=== PATIENT | female | born 1950 | race Caucasian/White ===

== ENCOUNTER 2016-08-21 18:14 | Emergency (ER) | payer OTHER ==
[~2016-08-21] VITALS: Ht 172.7 cm; Wt 81.5 kg
[2016-08-21 18:17] VITALS: BP 141/84; PULSE 86; RESP 22; TEMP 98.3; O2SAT 99
[2016-08-21] MEDS ORDERED: SODIUM CHLOR 0.9% 1000 ML INJ 1,000 ML IV SCH (18:51)
[2016-08-21] MEDS ORDERED: SODIUM CHLOR 0.9% 1000 ML INJ 1,000 ML IV ONE (19:00)
[2016-08-21] MEDS ORDERED: KETOROLAC TROMETHAMINE 30 MG/ML (IVP) VIAL IVP ONE (19:00)
[2016-08-21] MEDS ORDERED: SODIUM CHLORIDE 0.9% FLUSH 10 ML FLUSH IV FLUSH PRN (19:00)
[2016-08-21] MEDS ORDERED: ONDANSETRON HCL 4 MG/2 ML VIAL IVP ONE (19:00)
[2016-08-21] MEDS ORDERED: LOPERAMIDE HCL 2 MG CAP PO ONE (19:00)
[2016-08-21] MEDS ORDERED: ATOR20TA15 PO (19:02)
[2016-08-21] MEDS ORDERED: PANT40TA3 PO (19:02)
[2016-08-21] MEDS ORDERED: ALPR.5 PO (19:02)
[2016-08-21] MEDS ORDERED: ZYRT10CA PO (19:02)
[2016-08-21] MEDS ORDERED: VALA1TAB PO (19:02)
[2016-08-21] MEDS ORDERED: ZOLP10TA3 PO (19:02)
[2016-08-21] MEDS ORDERED: HYDR-3366 PO (19:02)
[2016-08-21] MEDS ORDERED: GABA400C5 PO (19:02)
[2016-08-21] MEDS ORDERED: METO25TA3 PO (19:02)
[2016-08-21] MEDS ORDERED: VORT1TAB3 PO (19:02)
[2016-08-21 19:19] LABS: AUTOMATED NEUTROPHIL # 5.7 TH/MM3 (1.8-7.7); BASOPHIL % 0.3 % (0.0-2.0); EOSINOPHIL % 0.1 % (0.0-4.0); HEMATOCRIT 37.6 % (35.0-46.0); HEMO FLAGS DIFF FINAL; LYMPH % 16.1 % (9.0-44.0); LYMPHOCYTE # 1.2 TH/MM3 (1.0-4.8); MEAN CELL VOLUME 87.8 FL (80.0-100.0); MEAN CORPUSCULAR HGB CONC 34.1 % (32.0-36.0); MONO % 6.8 % (0.0-8.0); NEUT % 76.7 % (16.0-70.0); PLATELET COUNT 253 TH/MM3 (150-450); RED BLOOD COUNT 4.28 MIL/MM3 (4.00-5.30); RED CELL DISTRIBUTION WIDTH 13.2 % (11.6-17.2); WHITE BLOOD COUNT 7.4 TH/MM3 (4.0-11.0)
[2016-08-21] MEDS ORDERED: ZOFR4TAB3 SL (19:53)
[2016-08-21] MEDS ORDERED: LOPE2TAB3 PO (19:53)
--- NOTE | 2016-08-21 19:53 | PD ---
HPI Chief Complaint: GI Complaint Time Seen by Provider: 18:42 Travel History International Travel<30 days: No Contact w/Intl Traveler<30days: No Traveled to known affect area: No History of Present Illness HPI This 66-year-old woman who presents to the emergency department complaining of nausea vomiting diarrhea starting yesterday afternoon. The patient recently went to the report of fluid off normally 2 days ago. Yesterday in the afternoon started getting nausea vomiting. She copious nausea vomiting all night and then developed copious watery diarrhea. Some chills but no definite fevers. No abdominal pain. No blood in her stool or vomit. She is a history of cholecystectomy and a . No other abdominal surgeries. No recent undercooked foods. No other sick contacts. No other complaints. History Past Medical History Narrative Medical Mitral valve prolapse and palpitations Anxiety Chronic back pain, on chronic opiates Tetanus Vaccination: > 5 Years Influenza Vaccination: Yes Social History Alcohol Use: No Tobacco Use: No Allergies-Medications (Allergen,Severity, Reaction): Coded Allergies: Adhesives (Verified Allergy, Unknown, 08/21/16) Biaxin (Verified Allergy, Unknown, 08/21/16) Cipro (Verified Allergy, Unknown, 08/21/16) Methadone (Verified Allergy, Unknown, 08/21/16) Penicillin (Verified Allergy, Unknown, 08/21/16) Ultram (Verified Allergy, Unknown, 08/21/16) Reported Meds & Prescriptions Reported Meds & Active Scripts Active Loperamide (Loperamide HCl) 2 Mg Tab 2 Mg PO DIRECTED PRN One tablet after each loose stool. Not to exceed 8 tablets per day. Zofran Odt (Ondansetron Odt) 4 Mg Tab 4 Mg SL Q8HR PRN May substitute non-ODT form. Reported Pantoprazole (Pantoprazole Sodium) 40 Mg Tab 40 Mg PO DAILY Valacyclovir (Valacyclovir HCl) 1 Gm Tab 1,000 Mg PO BID [place] (Hydrocodone-Acetaminophen) 10-325 Mg Tab 10 Tab PO Q4H PRN Xanax (Alprazolam) 0.5 Mg Tab 0.5 Mg PO Q4H PRN Zolpidem (Zolpidem Tartrate) 10 Mg Tab 10 Mg PO HS PRN Trintellix (Vortioxetine) 20 Mg Tab 20 Mg PO DAILY Gabapentin 400 Mg Cap 400 Cap PO HS Atorvastatin (Atorvastatin Calcium) 20 Mg Tab 20 Mg PO HS Zyrtec Allergy (Cetirizine HCl) 10 Mg Cap 10 Mg PO DAILY Metoprolol Tartrate 25 Mg Tab 25 Mg PO BID Review of Systems Except as stated in HPI: all other systems reviewed are Neg Physical Exam Narrative GENERAL: 66-year-old, appears uncomfortable but nontoxic. SKIN: Focused skin assessment warm/dry. Slightly decreased skin turgor. HEAD: Atraumatic. Normocephalic. EYES: Pupils equal and round. No scleral icterus. No injection or drainage. ENT: No nasal bleeding or discharge. Mucous membranes are little bit dry. NECK: Trachea midline. No JVD. CARDIOVASCULAR: Regular rate and rhythm. No murmur appreciated. RESPIRATORY: No accessory muscle use. Clear to auscultation. Breath sounds equal bilaterally. GASTROINTESTINAL: Abdomen soft, non-tender, nondistended. Hepatic and splenic margins not palpable. MUSCULOSKELETAL: No obvious deformities. No edema. NEUROLOGICAL: Awake and alert. No obvious cranial nerve deficits. Data Data Last Documented VS Vital Signs Date Time Temp Pulse Resp B/P Pulse Ox O2 Delivery O2 Flow Rate FiO2 08/21/16 18:17 98.3 86 22 141/84 99 Orders Complete Blood Count With Diff (08/21/16 18:51) Comprehensive Metabolic Panel (08/21/16 18:51) Lipase (08/21/16 18:51) Iv Access Insert/Monitor (08/21/16 18:51) Ondansetron Inj (Zofran Inj) (08/21/16 19:00) Sodium Chlor 0.9% 1000 Ml Inj (Ns 1000 M (08/21/16 18:51) Sodium Chloride 0.9% Flush (Ns Flush) (08/21/16 19:00) Ketorolac Inj (Toradol Inj) (08/21/16 19:00) Sodium Chlor 0.9% 1000 Ml Inj (Ns 1000 M (08/21/16 19:00) Loperamide (Imodium) (08/21/16 19:00) Labs Laboratory Tests Test 08/21/16 08/21/16 18:30 18:32 Sodium Level 140 MEQ/L Potassium Level 3.4 MEQ/L Chloride Level 104 MEQ/L Carbon Dioxide Level 24.9 MEQ/L Anion Gap 11 MEQ/L Blood Urea Nitrogen 8 MG/DL Creatinine 0.66 MG/DL Estimat Glomerular Filtration 90 ML/MIN Rate Random Glucose 118 MG/DL Calcium Level 9.2 MG/DL Total Bilirubin 0.8 MG/DL Aspartate Amino Transf 17 U/L (AST/SGOT) Alanine Aminotransferase 20 U/L (ALT/SGPT) Alkaline Phosphatase 69 U/L Total Protein 8.0 GM/DL Albumin 4.2 GM/DL Lipase 78 U/L White Blood Count 7.4 TH/MM3 Red Blood Count 4.28 MIL/MM3 Hemoglobin 12.8 GM/DL Hematocrit 37.6 % Mean Corpuscular Volume 87.8 FL Mean Corpuscular Hemoglobin 30.0 PG Mean Corpuscular Hemoglobin 34.1 % Concent Red Cell Distribution Width 13.2 % Platelet Count 253 TH/MM3 Mean Platelet Volume 8.3 FL Neutrophils (%) (Auto) 76.7 % Lymphocytes (%) (Auto) 16.1 % Monocytes (%) (Auto) 6.8 % Eosinophils (%) (Auto) 0.1 % Basophils (%) (Auto) 0.3 % Neutrophils # (Auto) 5.7 TH/MM3 Lymphocytes # (Auto) 1.2 TH/MM3 Monocytes # (Auto) 0.5 TH/MM3 Eosinophils # (Auto) 0.0 TH/MM3 Basophils # (Auto) 0.0 TH/MM3 CBC Comment DIFF FINAL Differential Comment MDM Medical Decision Making Medical Screen Exam Complete: Yes Emergency Medical Condition: Yes Interpretation(s) LABS: CBC is unremarkable. CMP is unremarkable. Lipase is normal. Differential Diagnosis Acute gastroenteritis, food borne illness, appendicitis, enteritis, other Narrative Course Medical decision making the 66-year-old with nausea vomiting diarrhea, no abdominal pain, recent travel, suggestive of infectious gastroenteritis. We'll give IV fluids, check labs, symptomatic treatment. Diagnosis Primary Impression: Acute gastroenteritis Additional Instructions: Use Zofran as needed for nausea or vomiting. Take loperamide as needed for diarrhea. Return to the emergency department for any worsening abdominal pain, bloody diarrhea, high fevers, or any other new or worsening symptoms. Follow up with her primary physician and return home. Med/Other Pt SpecificInfo: Prescription(s) given Scripts Loperamide 2 Mg Tab2 Mg PO DIRECTED PRN (DIARRHEA) #8 TAB One tablet after each loose stool. Not to exceed 8 tablets per day. Prov:Gui Saez MD 08/21/16 Ondansetron Odt (Zofran Odt)4 Mg Tab4 Mg SL Q8HR PRN (Nausea/Vomiting) #15 TAB May substitute non-ODT form. Prov:Gui Saez MD 08/21/16 Disposition: 01 DISCHARGE HOME Condition: Stable Gui Saez MD August 21, 2016 19:53
[2016-08-21 19:55] LABS: ANION GAP 11 MEQ/L (5-15); BICARBONATE 24.9 MEQ/L (21.0-32.0); BLOOD UREA NITROGEN 8 MG/DL (7-18); CHLORIDE 104 MEQ/L (98-107); GLOMERULAR FILTRATION RATE 90 ML/MIN (>89); POTASSIUM 3.4 MEQ/L (3.5-5.1); SODIUM (NA) 140 MEQ/L (136-145)
[2016-08-21 19:58] LABS: ALKALINE PHOSPHATASE 69 U/L (45-117); ALT (GPT) 20 U/L (10-53); AST (GOT) 17 U/L (15-37); TOTAL BILIRUBIN ADULT 0.8 MG/DL (0.2-1.0)
[2016-08-21] MEDS ORDERED: METOPROLOL TARTRATE 25 MG TAB PO ONE (20:15)
[2016-08-21] MEDS ORDERED: ONDANSETRON HCL 4 MG/2 ML VIAL IV PUSH ONE (20:15)
[2016-08-21] MEDS ORDERED: ACETAMINOPHEN/HYDROcodone 325 MG/5 MG TAB PO ONE (20:15)
[2016-08-21 20:46] VITALS: BP 136/60; PULSE 70; RESP 18; O2SAT 98
== END 2016-08-21 21:20 | disposition home or self-care (01) ==
LOC: NEPD 18:14
DX: K52.9 Noninfective gastroenteritis and colitis, unspecified (principal); Z86.79 Personal history of other diseases of the circulatory system; Z86.59 Personal history of other mental and behavioral disorders; Z87.39 Personal history of other diseases of the musculoskeletal system and connective tissue
CPT/HCPCS: 80053; 83690; 85025; 96361; 96374; 96375; 96376; 99284; J1885; J2405; J7030